=== PATIENT | male | born 1975 | race Caucasian/White ===

== ENCOUNTER 2019-02-15 14:06 | Observation (INO) | payer BC, OTHER ==
[2019-02-15 15:26] LABS: Absolute Lymphocytes (CBC) 1.5 K/uL (0.7-4.9); Basophils % 0.3 % (0-1.3); Hematocrit 41.5 % (39.6-49.0); Lymphocytes % 13.7 % (15.3-44.8); MPV 7.6 fL (7.6-11.3)
[2019-02-15 15:41] LABS: ALT/SGPT 39 U/L (12-78); AST/SGOT 23 U/L (15-37); Alkaline Phosphatase 89 U/L (45-117); BUN Blood Urea Nitrogen 7 mg/dL (7-18); Bicarbonate 28 mmol/L (21-32); Bilirubin Direct 0.2 mg/dL (0-0.2); Bilirubin Total 0.8 mg/dL (0.2-1.0); Glucose Level 106 mg/dL (74-106); Lipase 133 U/L (73-393); Potassium 3.5 mmol/L (3.5-5.1); Protein, Total 7.8 g/dL (6.4-8.2); Sodium Level 136 mmol/L (136-145)
[2019-02-15] MEDS ORDERED: NA CHLORIDE 0.9% 1,000 ML ONE (15:44)
--- NOTE | 2019-02-15 16:28 | RAD REPORT ---
EXAM DESCRIPTION: CT - Abdomen Pelvis W Contrast - 02/15/2019 3:58 pm CLINICAL HISTORY: Abdominal pain, fever COMPARISON: None. TECHNIQUE: Biphasic, helical CT imaging of the abdomen and pelvis was performed following 100 ml non -ionic IV contrast. Oral contrast was given. All CT scans are performed using dose optimization technique as appropriate and may include automated exposure control or mA/KV adjustment according to patient size. FINDINGS: No suspicious findings in the lung bases. The liver, spleen, and pancreas show no suspicious findings. Liver is borderline to mild fatty infilt rated. Gallbladder and biliary tree are also without suspicious finding. Symmetric renal function is seen with no hydronephrosis or suspicious renal mass. No pyelonephritis o r acute parenchymal process. Urinary bladder is contracted limiting detail. No bladder calculus. No g ross abnormality seen. Prostate gland and seminal vesicles within normal limits. No adrenal abnormali ties. No gastric dilatation or gastric wall thickening. Terminal ileum is prominent. This may be a peristal sis artifact. There is no edema or stranding in the adjacent fat. Small bowel is otherwise unremarkab le. Several small mesenteric lymph nodes are seen in the right lower quadrant The tip of the appendix is 9 mm with the midportion of the appendix 8 mm. This is upper normal to min imally enlarged. There is air within the lumen of the appendix. An appendicolith is present near the tip. There is a trace amount of stranding in the periappendiceal fat. Tip of the cecum is normal. No acute colon finding. No free air or pneumatosis. No other area of possible stranding. No mass or bulky lymphadenopathy. Fat extends into the origin of the left inguinal canal. No suspicious bony findings. IMPRESSION: Tip of the appendix is upper normal to minimally enlarged with an appendicolith present. There is trace stranding in the adjacent fat but also air within the lumen. Findings are not definitive for appendicitis. Very early stages of appendicitis are possible but woul d need supporting clinical findings. Patient can be monitored with follow-up findings clinical and laboratory findings progressed. There is no either abnormality seen at may explain fever. Liver is a borderline to mildly fatty infiltrated.
--- NOTE | 2019-02-15 16:53 | ER ---
Nurse's Notes [facility] Name: Da Pride Age: 43 yrs Sex: Male : 1975 Arrival Date: 02/15/2019 Time: 14:08 Bed 16 Private MD: out of town, doctor Diagnosis: Lower abdominal pain, unspecified-early appendicitis Presentation: 02/15 14:17 Presenting complaint: Patient states: Thursday, had a fever and started having abd hj pain, across the abd; denies diarrhea, constipation, denies N/V; reports lower back pain;. Transition of care: patient was not received from another setting of care. Onset of symptoms was February 15, 2019. Risk Assessment: Do you want to hurt yourself or someone else? Patient reports no desire to harm self or others. Initial Sepsis Screen: Does the patient meet any 2 criteria? No. Patient's initial sepsis screen is negative. Does the patient have a suspected source of infection? No. Patient's initial sepsis screen is negative. Care prior to arrival: None. 14:17 Method Of Arrival: Ambulatory 14:17 Acuity: LATOYA 3 hj Historical: - Allergies: 14:19 No Known Allergies; hj - PMHx: 14:19 None; hj - PSHx: 14:19 Hernia repair; hj - Immunization history:: Adult Immunizations unknown. - Social history:: Smoking status: unknown. - Ebola Screening: : No symptoms or risks identified at this time. Screenin:25 Abuse screen: Denies threats or abuse. Denies injuries from another. Nutritional jl7 screening: No deficits noted. Tuberculosis screening: No symptoms or risk factors identified. Fall Risk IV access (20 points). Total Parry Fall Scale indicates No Risk (0-24 pts). Assessment: 15:25 General: Appears in no apparent distress. uncomfortable, Behavior is calm, cooperative, jl7 appropriate for age. Pain: Complains of pain in right lower quadrant Pain does not radiate. Pain currently is 0 out of 10 on a pain scale. at worst was 5 out of 10 on a pain scale. Quality of pain is described as sharp, Pain began 2-3 days ago. Is intermittent. Neuro: Level of Consciousness is awake, alert, obeys commands, Oriented to person, place, time, situation. Cardiovascular: Patient's skin is warm and dry. Respiratory: Airway is patent Respiratory effort is even, unlabored, Respiratory pattern is regular, symmetrical. GI: Abdomen is round non-distended, Stools are reported to be normal. Last BM was February 15, 2019. Bowel sounds present X 4 quads. Abd is soft X 4 quads Abd is non tender in right upper quadrant, left upper quadrant and left lower quadrant Abdomen is tender to palpation in right lower quadrant. : Urine is clear, Reports burning with urination, since pt states "It burned when I went to the bathroom earlier but only that one time." Denies inability to void, incontinence, pain urinary frequency, urgency. Derm: Skin is pink, warm \\T\\ dry. 16:30 Reassessment: Patient appears in no apparent distress at this time. No changes from jl7 previously documented assessment. Patient and/or family updated on plan of care and expected duration. Pain level reassessed. Patient is alert, oriented x 3, equal unlabored respirations, skin warm/dry/pink. 16:55 Reassessment: ERP at bedside discussing plan of care. jl7 Vital Signs: 14:20 BP 147 / 88; Pulse 81; Resp 16; Temp 97.8(TE); Pulse Ox 98% on R/A; Weight 117.93 kg; hj Height 5 ft. 9 in. (175.26 cm); Pain 4/10; 15:25 BP 128 / 77; Pulse 88; Resp 16; Pulse Ox 96% on R/A; Pain 0/10; jl7 17:04 BP 126 / 78; Pulse 80; Resp 16 S; Pulse Ox 100% on R/A; jl7 14:20 Body Mass Index 38.39 (117.93 kg, 175.26 cm) ED Course: 14:08 Patient arrived in ED. dl4 14:09 out of town, doctor is Private Physician. dl4 14:19 Triage completed. hj 14:20 Arm band placed on right wrist. hj 14:48 Robin Wynn, GERTRUDE is Primary Nurse. jl7 14:57 Catalina Henderson FNP-C is PHCP. kb 14:57 Sidney Yang MD is Attending Physician. kb 15:06 Radiology exam delayed due to lab results not completed at this time. (BUN/Creatinine) jg6 IV insertion attempt and/or patient not having appropriate IV at this time. 15:13 Initial lab(s) drawn, by me, sent to lab. Urine collected: clean catch specimen, clear, jb1 lory colored. Inserted saline lock: 22 gauge in left antecubital area, using aseptic technique. Blood collected. 15:25 Patient has correct armband on for positive identification. Bed in low position. Call jl7 light in reach. Side rails up X 1. Pulse ox on. NIBP on. 16:01 CT Abd/Pelvis - IV Contrast Only In Process Unspecified. EDMS 16:51 Giovani Becerra MD is Hospitalizing Provider. kb 17:31 No provider procedures requiring assistance completed. Patient admitted, IV remains in jl7 place. intact, No redness/swelling at site. Administered Medications: 15:33 Drug: NS 0.9% 1000 ml Route: IV; Rate: 1000 ml; Site: left antecubital; jl7 16:30 Follow up: IV Status: Completed infusion; IV Intake: 1000ml jl7 17:12 Drug: Mefoxin 2 grams {Note: Administered as push medication per protocol.} Route: jl7 IVPB; Infused Over: 30 mins; Site: left antecubital; 17:17 Follow up: IV Status: Completed infusion jl7 17:12 Drug: Flagyl 500 mg Volume: 100 ml; Route: IVPB; Rate: 200 ml/hr; Infused Over: 30 jl7 mins; Site: left antecubital; 17:35 Follow up: IV Status: Infusion continued upon admission jl7 Intake: 16:30 IV: 1000ml; Total: 1000ml. jl7 Outcome: 16:52 Decision to Hospitalize by Provider. kb 17:30 Admitted to OR accompanied by nurse, via stretcher, with chart. jl7 17:30 Condition: stable 17:30 Discharge instructions given to patient, Instructed on the need for admit, Demonstrated understanding of instructions. 17:32 Patient left the ED. jl7 Signatures: Dispatcher [employer] EDMS Wally Rangel jb1 Catalina Henderson, SENIOR SUPPLY CHAIN ANALYST-C SENIOR SUPPLY CHAIN ANALYST-CkEfra Alas, RN RN Robin Greenwood RN RN jl7 Luci Davis6 Jesus Mosley dl4 Corrections: (The following items were deleted from the chart) 14:21 14:20 Pulse 81bpm; Resp 16bpm; Pulse Ox 98% RA; Temp 97.8F Temporal; 117.93 kg; Height hj 5 ft. 9 in.; BMI: 38.3; Pain 4/10; hj
--- NOTE | 2019-02-15 16:53 | EDPHYS ---
Physician Documentation [facility] Name: Da Pride Age: 43 yrs Sex: Male : 1975 Arrival Date: 02/15/2019 Time: 14:08 Bed 16 Private MD: out of town, doctor ED Physician Sidney Yang HPI: 02/15 15:07 This 43 yrs old Male presents to ER via Ambulatory with complaints of kb Abdominal Pain. 15:07 The patient presents with abdominal pain right lower quadrant. Onset: The kb symptoms/episode began/occurred 3 day(s) ago. The symptoms do not radiate. Associated signs and symptoms: Pertinent positives: fever. The symptoms are described as constant. Modifying factors: The symptoms are alleviated by nothing, the symptoms are aggravated by pressure. Severity of pain: At its worst the pain was moderate in the emergency department the pain is unchanged. The patient has not experienced similar symptoms in the past. The patient has not recently seen a physician. Pt reports RLQ pain, fever and chills since Thursday night. States he thought he was better this morning, but got to work and was still running fever. . Historical: - Allergies: 14:19 No Known Allergies; hj - PMHx: 14:19 None; hj - PSHx: 14:19 Hernia repair; hj - Immunization history:: Adult Immunizations unknown. - Social history:: Smoking status: unknown. - Ebola Screening: : No symptoms or risks identified at this time. ROS: 15:06 ENT: Negative for injury, pain, and discharge, Neck: Negative for injury, pain, and kb swelling, Cardiovascular: Negative for chest pain, palpitations, and edema, Respiratory: Negative for shortness of breath, cough, wheezing, and pleuritic chest pain, Back: Negative for injury and pain, : Negative for injury, bleeding, discharge, and swelling, MS/Extremity: Negative for injury and deformity, Skin: Negative for injury, rash, and discoloration, Neuro: Negative for headache, weakness, numbness, tingling, and seizure. 15:06 Constitutional: Positive for chills, fever, Negative for body aches, fatigue, malaise, poor PO intake, weight loss. 15:06 Abdomen/GI: Positive for abdominal pain, Negative for nausea, vomiting, and diarrhea. Exam: 15:07 Constitutional: This is a well developed, well nourished patient who is awake, alert, kb and in no acute distress. Head/Face: Normocephalic, atraumatic. ENT: Nares patent. No nasal discharge, no septal abnormalities noted. Tympanic membranes are normal and external auditory canals are clear. Oropharynx with no redness, swelling, or masses, exudates, or evidence of obstruction, uvula midline. Mucous membranes moist. Neck: Trachea midline, no thyromegaly or masses palpated, and no cervical lymphadenopathy. Supple, full range of motion without nuchal rigidity, or vertebral point tenderness. No Meningismus. Chest/axilla: Normal chest wall appearance and motion. Nontender with no deformity. No lesions are appreciated. Cardiovascular: Regular rate and rhythm with a normal S1 and S2. No gallops, murmurs, or rubs. Normal PMI, no JVD. No pulse deficits. Respiratory: Lungs have equal breath sounds bilaterally, clear to auscultation and percussion. No rales, rhonchi or wheezes noted. No increased work of breathing, no retractions or nasal flaring. Back: No spinal tenderness. No costovertebral tenderness. Full range of motion. Skin: Warm, dry with normal turgor. Normal color with no rashes, no lesions, and no evidence of cellulitis. MS/ Extremity: Pulses equal, no cyanosis. Neurovascular intact. Full, normal range of motion. Neuro: Awake and alert, GCS 15, oriented to person, place, time, and situation. Cranial nerves II-XII grossly intact. Motor strength 5/5 in all extremities. Sensory grossly intact. Cerebellar exam normal. Normal gait. 15:07 Abdomen/GI: Inspection: abdomen appears normal, Bowel sounds: normal, in all quadrants, Palpation: soft, in all quadrants, mild abdominal tenderness, in the right upper quadrant, moderate abdominal tenderness, in the right lower quadrant. Vital Signs: 14:20 BP 147 / 88; Pulse 81; Resp 16; Temp 97.8(TE); Pulse Ox 98% on R/A; Weight 117.93 kg; hj Height 5 ft. 9 in. (175.26 cm); Pain 4/10; 15:25 BP 128 / 77; Pulse 88; Resp 16; Pulse Ox 96% on R/A; Pain 0/10; jl7 17:04 BP 126 / 78; Pulse 80; Resp 16 S; Pulse Ox 100% on R/A; jl7 14:20 Body Mass Index 38.39 (117.93 kg, 175.26 cm) hj MDM: 14:58 Patient medically screened. 15:07 Data reviewed: vital signs, nurses notes. Data interpreted: Pulse oximetry: on room air kb is 98 %. Interpretation: normal. 16:49 Counseling: I had a detailed discussion with the patient and/or guardian regarding: the kb historical points, exam findings, and any diagnostic results supporting the discharge/admit diagnosis, lab results, radiology results, the need for further work-up and treatment in the hospital. 16:49 ED course: Patient with focal RLQ tenderness, possible early appendicitis on CT, story rn convincing for early appendicitis and no other obvious etiology on story/exam. COnsulted with Dr. Becerra, will take to OR for appendectomy. 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 . 16:50 Physician consultation: Giovani Becerra MD was called at 16:50, regarding admission, to the medical/surgical unit. patient's condition, and will see patient shortly. 02/15 15:03 Order name: Hepatic Function; Complete Time: 15:46 kb 02/15 15:03 Order name: Basic Metabolic Panel; Complete Time: 15:46 kb 02/15 15:03 Order name: CBC with Diff; Complete Time: 15:35 kb 02/15 15:03 Order name: Lipase; Complete Time: 15:46 kb 02/15 15:03 Order name: CT Abd/Pelvis - IV Contrast Only; Complete Time: 16:31 kb 02/15 15:30 Order name: Urine Dipstick--Ancillary (enter results); Complete Time: 17:22 bd 02/15 15:03 Order name: IV Saline Lock; Complete Time: 15:13 kb 02/15 15:03 Order name: Labs collected and sent; Complete Time: 15:13 kb 02/15 15:03 Order name: Urine Dipstick-Ancillary (obtain specimen); Complete Time: 15:13 kb Administered Medications: 15:33 Drug: NS 0.9% 1000 ml Route: IV; Rate: 1000 ml; Site: left antecubital; ed [facility] 16:30 Follow up: IV Status: Completed infusion; IV Intake: 1000ml jl7 17:12 Drug: Mefoxin 2 grams {Note: Administered as push medication per protocol.} Route: jl7 IVPB; Infused Over: 30 mins; Site: left antecubital; 17:17 Follow up: IV Status: Completed infusion jl7 17:12 Drug: Flagyl 500 mg Volume: 100 ml; Route: IVPB; Rate: 200 ml/hr; Infused Over: 30 jl7 mins; Site: left antecubital; 17:35 Follow up: IV Status: Infusion continued upon admission jl7 Disposition: 18:23 Co-signature as Attending Physician, Sidney Yang MD. rn Disposition: 02/15/19 16:52 Hospitalization ordered by Giovani Becerra for Observation. Preliminary diagnosis is Lower abdominal pain, unspecified - early appendicitis. - Bed requested for Telemetry/MedSurg (observation). - Status is Observation. jl7 - Condition is Stable. - Problem is new. - Symptoms are unchanged. UTI on Admission? No Signatures: Dispatcher [employer] EDND Catalina Henderson, EXOTIC DANCER-C EXOTIC DANCER-Ckb Sidney Yang MD MD rn Joaquin, Henry, RN RN hj Leal, Jahala, RN RN jl7 Corrections: (The following items were deleted from the chart) 17:32 16:52 Hospitalization Ordered by Giovani Becerra MD for Observation. Preliminary diagnosis jl7 is Lower abdominal pain, unspecified - early appendicitis. Bed requested for Telemetry/MedSurg (observation). Status is Observation. Condition is Stable. Problem is new. Symptoms are unchanged. UTI on Admission? No. kb
[2019-02-15] MEDS ORDERED: CEFOXITIN/SWI 1gm 1 GM/10 ML SYR ONE ×2 (17:17→17:21)
[2019-02-15] MEDS ORDERED: METRONIDAZOLE 500mg IVPB 500 MG/100 ML BAG IV ONE (17:17)
[2019-02-15 17:20] LABS: Urine Specific Gravity 1.015 (1.005-1.030)
[2019-02-15 17:21] LABS: Urine Blood 1+ (NEG); Urine Glucose NEGATIVE (NEG); Urine Protein NEGATIVE (NEG)
[2019-02-15] MEDS ORDERED: Ringers Lactate 1,000 ML IV ONE (17:47)
[2019-02-15] MEDS ORDERED: FENTANYL CITR 100 MCG/2 ML ONE (17:54)
[2019-02-15] MEDS ORDERED: GLYCOPYRROLATE 0.2 MG/ML SYR ONE (17:55)
[2019-02-15] MEDS ORDERED: ONDANSETRON 4 MG/2 ML VIAL ONE (17:55)
[2019-02-15] MEDS ORDERED: MIDAZOLAM HCL 2 MG/2 ML INJ ONE (17:55)
[2019-02-15] MEDS ORDERED: PROPOFOL 200 MG/20 ML VIAL IV ONE (17:55)
[2019-02-15] MEDS ORDERED: NEOSTIGMINE 1 MG/ML -10 ML VIAL ONE (17:55)
[2019-02-15] MEDS ORDERED: MORPHINE 10 MG/ML VIAL ONE (17:56)
[2019-02-15] MEDS ORDERED: ROCURONIUM 50 MG/5 ML VIAL IV ONE (17:56)
[2019-02-15] MEDS ORDERED: KETOROLAC 30 MG/ML INJ ONE (17:56)
[2019-02-15] MEDS ORDERED: LIDOCAINE 1% MPF 5 ML VIAL ONE (17:56)
[2019-02-15] MEDS ORDERED: NA CHLORIDE 0.9% 1,000 ML IV SCH (18:59)
[2019-02-15] MEDS ORDERED: ONDANSETRON 4 MG/2 ML VIAL IV PRN (18:59)
[2019-02-15] MEDS ORDERED: ACETAMINOPHEN 500 MG TAB PO PRN (18:59)
[2019-02-15] MEDS ORDERED: MORPHINE 4 MG/ML SYR IV PRN (18:59)
[2019-02-15] MEDS ORDERED: HYDROCODONE/APAP 7.5/325 MG TAB PO PRN (19:59)
[2019-02-15] MEDS ORDERED: HYDROMORPHONE HCL 1 MG/ML INJ IV PRN (20:00)
[2019-02-15] MEDS: Ringers Lactate 1,000 ML IV SCH (20:37)
[2019-02-15] MEDS: METRONIDAZOLE 500mg IVPB 500 MG/100 ML BAG IV SCH (20:37)
--- NOTE | 2019-02-15 20:53 | PREOPHP ---
Date of Admission: 02/15/2019 Chief Complaint: Abdominal pain. History Of Present Illness: Patient is a 43-year-old gentleman who has had right lower quadrant abdo alan pain since Thursday, associated with low-grade temperature. Denies any nausea, vomiting, diarr hea, or constipation. No blood in his stool. No dysuria or hematuria. No sore throat, runny nose, cough, headaches, or dizziness. No chest pain. He has had some anorexia today. Review of Systems: Otherwise unremarkable. Past Medical History: Negative. Past Surgical History: Inguinal hernia repair. Allergies: NO ALLERGIES. Social History: Denies smoking. Drinks occasionally. Family History: Epilepsy in the mother. Physical Examination: Vital Signs: Stable. Currently afebrile. General: Awake, alert, oriented x3. Head and Neck: Cranial nerves 2 through 12 grossly within normal limits. No neck masses. No JVD. Throat clear. Neck is supple. Chest: Clear. Heart: S1, S2. Abdomen: Soft, nondistended. Positive bowel sounds. Positive right lower quadrant tenderness with rebound. No rigidity or guarding. Extremities: Adequately perfused. Nontender. Neuro: Nonfocal. Laboratory Data: White count is 11,000. Imaging Data: CT of the abdomen and pelvis is consistent with early acute appendicitis. Assessment: Acute appendicitis. Plan: Admit, n.p.o., IV fluid, IV antibiotic, to the OR for laparoscopic appendectomy, possible open . Patient understands the risks, benefits, and alternatives and agrees to procedure. ALPHONSE/CAROLYN Voice ID: [id number]
--- NOTE | 2019-02-16 00:32 | OP ---
Date of Procedure: 02/15/2019 Surgeon: Giovani Becerra MD Preoperative Diagnosis: Acute appendicitis. Postoperative Diagnosis: Acute appendicitis with umbilical hernia. Procedure Performed: Laparoscopic appendectomy and repair of umbilical hernia. Estimated Blood Loss: Minimal. Specimen: Appendix and hernia sac with contents. Findings: As above. Anesthesia: General. Complications: None. Disposition: Patient tolerated the procedure in stable condition, taken to Recovery in good general condition. Procedure In Detail: Patient was brought to the OR and placed in supine position. General anesthesi a was begun. Patient was prepped and draped in usual sterile fashion. Marcaine 0.5% was infiltrated locally. A 15 blade was used to make a 2 cm supraumbilical incision. Subcutaneous tissue was divid ed. Hernia sac and contents identified. The hernia sac and contents excised, approximately a 1.5 cm defect remained. A #1 Vicryl stay suture was placed with good fascial edges. Peritoneal cavity was entered with sharp and blunt dissection. 12 mm trocar was placed into the peritoneal cavity under d irect vision. Pneumoperitoneum was established, and then two 5 mm trocars were placed, 1 in the supr apubic region and 1 in the left lower quadrant. Laparoscopy revealed retrocecal mildly inflamed acut e appendicitis. Base of the appendix on the cecum and mesoappendix clearly identified. Endo-COOPER sta pling device was used in a sequential fashion to divide both structures. The appendix was retrieved through the umbilicus via an EndoCatch bag. Right lower quadrant was irrigated. Effluent was clear. No evidence of bleeding or bowel injury appreciated. Subsequently, all trocars were removed under direct vision. Stay sutures were tied to each other to reapproximate the fascial defect. Subcutaneo us wound was irrigated. Bleeding was controlled with cautery. 3-0 chromic was used to approximate t he subcutaneous tissue and michel were used to close the skin. Sterile dressing was applied. Patie nt was awakened and taken to Recovery in good general condition. /MODL Voice ID: [id number] Report ID: [id number]
[2019-02-16] MEDS: METRONIDAZOLE 500mg IVPB 500 MG/100 ML BAG IV SCH ×2 (00:57→05:38)
[2019-02-16] MEDS: CEFOXITIN SODIUM 1 GM/VIAL IVPB SCH ×2 (01:08→05:39)
[2019-02-16] MEDS ORDERED: CEFOXITIN SODIUM 1 GM/VIAL ONE (01:27)
[2019-02-16] MEDS ORDERED: ACETAMINOPHEN 500 MG TAB PO PRN (03:44)
[2019-02-16] MEDS: Ringers Lactate 1,000 ML IV SCH (06:00)
[2019-02-16 06:38] LABS: Basophils % 0.1 % (0-1.3); Hematocrit 35.5 % (39.6-49.0); MPV 8.1 fL (7.6-11.3); RBC Red Blood Cell Count 4.03 M/uL (4.33-5.43)
[2019-02-16 06:57] LABS: Potassium 3.2 mmol/L (3.5-5.1)
[2019-02-16] MEDS ORDERED: CEFOXITIN/SWI 1gm 1 GM/10 ML SYR IV SCH (12:00)
--- NOTE | 2019-02-17 05:44 | DS ---
Date of Discharge: 02/16/2019 Admitting Diagnosis: Acute appendicitis. Discharge Diagnosis: Acute appendicitis. Procedures Performed: Laparoscopic appendectomy and repair of umbilical hernia. Hospital Course: The patient is a 43-year-old gentleman, who underwent the aforementioned procedure. Postoperatively, he is tolerating a diet, ambulating, pain controlled with p.o. pain medication, af ebrile. His white count is normal, therefore patient will be discharged home. Disposition: Home. Condition: Stable. Discharge Instructions: Resume home medications and diet. Activity as tolerated. No heavy lifting. Remove outer dressing in a.m. Shower. Keep wound clean and dry. Follow up in my office in 1 week . Call for appointment. Tylenol No. 3 one tablet p.o. q.4 p.r.n. pain, Cipro 500 mg p.o. q.12, Flag yl 500 mg p.o. q.6 h. /MODL Voice ID: [id number] Report ID: [id number]
== END 2019-02-16 11:25 | disposition home or self-care (01) ==
LOC: ER 14:06 → ERHOLD 17:20 → 2ND 17:59
PROVIDERS: ADMIT Surgery; ATTEND Surgery
PROC: 0WQF0ZZ Repair Abdominal Wall, Open Approach (ICD-10-PCS; 2019-02-15)
PROC: 0DTJ4ZZ Resection of Appendix, Percutaneous Endoscopic Approach (ICD-10-PCS; principal; 2019-02-15 17:30)
DX: K36 Other appendicitis (principal); K42.9 Umbilical hernia without obstruction or gangrene
CPT/HCPCS: 44970; 49585; 96365; 96361; 85025 ×2; 80048 ×2; 36415; 80076; 88302; 88304; 81003; 83690; 74177; 96375; 99285; Q9967; J2704; J2710; J2250; J3010; J7030; J0694; J2405; G0378 ×2